=== PATIENT | male | born 1950 | race Caucasian/White ===

== ENCOUNTER 2020-08-24 21:49 | Emergency (ER) | payer MEDICARE ==
[~2020-08-24] VITALS: Ht 182.9 cm; Wt 117.5 kg
[2020-08-24 22:17] LABS: ABSOLUTE EOSINOPHILS 0.2 thou/uL (0.0-0.7); ABSOLUTE LYMPHOCYTES 1.4 thou/uL (0.8-5.3); ABSOLUTE MONOCYTES 0.8 thou/uL (0.0-1.2); ABSOLUTE NEUTROPHILS 2.4 thou/uL (1.6-8.1); BASOPHILS 0.8 %; EOSINOPHILS 3.7 %; HEMATOCRIT 45.2 % (42.0-52.0); HEMOGLOBIN 15.2 gm/dL (14.0-18.0); LYMPHOCYTES 28.5 %; MCH 32.4 pg (26.0-34.0); MCHC 33.7 g/dL (28.0-37.0); MCV 95.9 fL (80.0-100.0); MONOCYTES 17.3 %; MPV 8.7 fl. (7.2-11.1); NUCLEATED RBCS 0 /100WBC; PLATELET COUNT* 108 thou/uL (150-400); POLYS 49.7 %; RBC 4.71 mil/uL (4.50-6.00); RDW-CV 14.5 % (10.5-14.5); WBC 4.7 thou/uL (4.0-11.0)
[2020-08-24 22:23] LABS: CALCIUM 8.9 mg/dL (8.5-10.1); CREATININE 1.5 mg/dL (0.6-1.3); POTASSIUM 3.5 mmol/L (3.5-5.1)
[2020-08-24 22:28] LABS: ALBUMIN 3.6 g/dL (3.4-5.0); TOTAL BILIRUBIN 0.5 mg/dL (<0.1-1.0); TOTAL PROTEIN 6.3 g/dL (6.4-8.2)
[2020-08-25 05:53] VITALS: BP 115/73
--- NOTE | 2020-08-25 11:01 | EKG ---
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[place] : 1950 Requested By: Mayra Hendricks Order Number: [id number] MD: Ge Head Measurements Intervals [place] Rate: 55 P: 41 VT: 199 QRS: -4 QRSD: 105 T: -21 QT: 432 QTc: 414 Interpretive Statements Sinus bradycardia Low voltage, precordial leads Borderline repolarization abnormality Baseline wander in lead(s) I,III,aVL,V1,V2,V3,V4,V5,V6 No previous ECG available for comparison Electronically Signed On 08-25-2020 11:01:27 CDT by Ge Head [email or web address] <ELECTRONICALLY SIGNED> By: Ge Head MD, FAC 08/25/20 1101 13 Ge Head MD, FAC /EPI
== END 2020-08-25 05:54 | disposition home or self-care (01) ==
LOC: M.ERS 21:49
PROVIDERS: Emergency Medicine
DX: F10.129 Alcohol abuse with intoxication, unspecified (principal); Y90.8 Blood alcohol level of 240 mg/100 ml or more

== ENCOUNTER 2020-12-18 11:58 | Emergency (ER) | payer OTHER ==
[~2020-12-18] VITALS: Ht 182.9 cm; Wt 111.1 kg
[2020-12-18 12:49] LABS: ABSOLUTE EOSINOPHILS 0.1 thou/uL (0.0-0.7); ABSOLUTE LYMPHOCYTES 0.8 thou/uL (0.8-5.3); ABSOLUTE MONOCYTES 0.5 thou/uL (0.0-1.2); ABSOLUTE NEUTROPHILS 2.7 thou/uL (1.6-8.1); BASOPHILS 0.7 %; EOSINOPHILS 2.2 %; HEMATOCRIT 43.4 % (42.0-52.0); HEMOGLOBIN 14.3 gm/dL (14.0-18.0); LYMPHOCYTES 20.1 %; MCH 31.9 pg (26.0-34.0); MCHC 33.1 g/dL (28.0-37.0); MCV 96.4 fL (80.0-100.0); MONOCYTES 12.5 %; MPV 8.8 fl. (7.2-11.1); NUCLEATED RBCS 0 /100WBC; PLATELET COUNT* 163 thou/uL (150-400); POLYS 64.5 %; RDW-CV 15.2 % (10.5-14.5); WBC 4.2 thou/uL (4.0-11.0)
[2020-12-18 12:57] LABS: CALCIUM 8.5 mg/dL (8.5-10.1); CREATININE 1.6 mg/dL (0.6-1.3); POTASSIUM 3.7 mmol/L (3.5-5.1)
[2020-12-18 13:02] LABS: ALBUMIN 4.1 g/dL (3.4-5.0); TOTAL BILIRUBIN 0.9 mg/dL (<0.1-1.0); TOTAL PROTEIN 6.6 g/dL (6.4-8.2)
--- NOTE | 2020-12-18 15:28 | EKG ---
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1950 Requested By: Rohit Lopez Order Number: [id number] MD: Man Vasquez Measurements Intervals [place] Rate: 63 P: 49 UT: 179 QRS: -5 QRSD: 105 T: 23 QT: 422 QTc: 433 Interpretive Statements Sinus rhythm Borderline T wave abnormalities Compared to ECG 08/24/2020 22:14:12 T-wave abnormality now present Sinus bradycardia no longer present Electronically Signed On 12-18-2020 15:28:46 CDT by Man Vasquez [email or web address] <ELECTRONICALLY SIGNED> By: Man Vasquez MD, [facility] 12/18/20 1528 1224 1224 Man Vasquez MD, [facility] /EPI
[2020-12-19 05:01] VITALS: BP 146/90
== END 2020-12-19 05:01 | disposition home or self-care (01) ==
LOC: M.ERS 11:58
PROVIDERS: Emergency Medicine Emergency Medical Services
DX: F10.129 Alcohol abuse with intoxication, unspecified (principal); Y90.8 Blood alcohol level of 240 mg/100 ml or more; Z88.5 Allergy status to narcotic agent